=== PATIENT | female | born 1965 | race Caucasian/White ===

== ENCOUNTER 2020-07-07 09:40 | Emergency (ER) | payer SELFPAY ==
[2020-07-07 11:11] LABS: microscopic required? YES; urine erythrocyte 2+ (NEGATIVE)
[2020-07-07 12:03] VITALS: BP 155/87
== END 2020-07-07 12:03 | disposition home or self-care (01) ==
LOC: ED 09:40
PROVIDERS: Emergency Medicine
DX: N39.0 Urinary tract infection, site not specified (principal)